=== PATIENT | male | born 1985 | race Caucasian/White ===

== ENCOUNTER 2016-12-01 13:38 | Emergency (ER) | payer OTHER, BC ==
[~2016-12-01] VITALS: Ht 180.3 cm; Wt 88.5 kg
[~2016-12-01 13:38] MED LIST: BUPR1SUB22 SL
[2016-12-01 13:40] VITALS: TEMP 37.1; Ht 180.3 cm; Wt 88.5 kg
[2016-12-01] MEDS ORDERED: DIPHTHERIA/TETANUS/PERTUSSIS 0.5 ML SYR/VIAL IM. ONE (14:00)
[2016-12-01] MEDS ORDERED: XYLOCAINE 1%/SOD BICARB 20 ML VIAL INFIL ONE (14:00)
--- NOTE | 2016-12-01 14:43 | DIAGNOSTIC IMAGING REPORT ---
RIGHT HAND MIN 3 VIEWS ROUTINE CLINICAL HISTORY: Right hand injury. Laceration. COMPARISON: None FINDINGS: Alignment of the right hand is in anatomic. There is no acute fracture or radiopaque foreign body. Carpal bones are intact. IMPRESSION: No acute fracture or radiopaque foreign body within the right hand. Electronically signed by: Homer Champagne M.D. 12/01/2016 2:42 PM Dictated Date/Time: 12/01/2016 2:41 PM
[2016-12-01] MEDS ORDERED: DOXY100C2 PO (15:07)
[2016-12-01 15:25] VITALS: BP 113/71; PULSE 59; O2SAT 96
--- NOTE | 2016-12-01 15:29 | EMERGENCY ROOM VISIT NOTE ---
ED Visit Note First contact with patient: 13:51 CHIEF COMPLAINT: Metal file in right hand HISTORY of present illness: 31-year-old male presents the ER with chief complaint that he got a metal file stuck in his right hand. The patient states that he had the file in a machine and he got caught in the back portion of it went into the palm of his right hand and there was tenting of the skin on the dorsal aspect of his hand. He states it did not go completely through his hand. He immediately pulled the file out of his hand. The patient denies any numbness and tingling in his fingers. He is able to move his fingers but it is painful. The patient is currently on Suboxone. The patient is unsure of his tetanus status. REVIEW OF SYSTEMS: 6 system review was performed and was negative unless stated otherwise in history of present illness. PMH: The patient is healthy; anterior cruciate ligament surgery, Lyme's disease SOCIAL HISTORY: Patient admits tobacco and occasional alcohol use. He lives with his fianc and children. PHYSICAL EXAM: Vital Signs: Were reviewed Reviewed Nurse's notes. GEN.: 31-year -old white male appears in no acute distress. MENTAL Status: Alert and oriented 3. RIGHT HAND: There is a puncture wound on the palmar aspect between the third and fourth metacarpals. There is no purulent drainage. There is no surrounding erythema. There is no foreign body noted. There is no open wounds noted on the dorsal aspect of the hand. The patient is able to move all fingers without difficulty. EMERGENCY DEPARTMENT COURSE: X-ray was performed as below without any evidence of foreign body or fracture. Wound was irrigated as below. The patient was given Adacel. The patient was offered ibuprofen but he stated that he had some in the car. The patient is on Suboxone therefore she will not get any narcotic pain medication. PROCEDURE: After Betadine cleansing and lidocaine anesthesia the wound was irrigated using an 18-gauge needle catheter. Antibiotic ointment and a bandage was applied. DIAGNOSTICS:RIGHT HAND MIN 3 VIEWS ROUTINE CLINICAL HISTORY: Right hand injury. Laceration. COMPARISON: None FINDINGS: Alignment of the right hand is in anatomic. There is no acute fracture or radiopaque foreign body. Carpal bones are intact. IMPRESSION: No acute fracture or radiopaque foreign body within the right hand. Electronically signed by: Homer Champagne M.D. 12/01/2016 2:42 PM Dictated Date/Time: 12/01/2016 2:41 PM DIAGNOSIS: Foreign body right hand DISCHARGE INSTRUCTIONS: Watch the area for signs of infection such as redness, swelling, or increasing tenderness. Keep the area covered with bacitracin and bandage for 3 days. Take doxycycline as prescribed. Ibuprofen 600 mg every 6 hours with food for pain. Follow-up with Dr. Gustafson Problem List Medical Problems: (1) Headache Status: Chronic Current/Historical Medications Scheduled Buprenorphine Hcl-Naloxone Hcl (Suboxone 2-0.5 Mg), 12 MG SL DAILY Doxycycline Hyclate (Vibramycin), 100 MG PO BID Allergies Coded Allergies: Penicillins (Verified Allergy, Intermediate, HIVES, 10/24/13) Amoxicillin (Verified Allergy, Unknown, ., 10/24/13) Uncoded Allergies: [id number] (Allergy, Intermediate, HIVES, 01/19/15) [id number] (Allergy, Unknown, ., 01/19/15) Vital Signs Date Time Temp Pulse Resp B/P (MAP) Pulse Ox O2 Delivery O2 Flow Rate FiO2 12/01/16 13:40 37.1 72 16 160/83 96 Room Air Medications Administered Medications (Trade) Dose Ordered Sig/Niko Route Start Time Stop Time Status Last Admin Dose Admin Diphtheria/ Pertussis/Tetanus Vacc (Adacel Inj) 0.5 ml ONCE ONCE IM. 12/01/16 14:00 12/01/16 14:01 DC 12/01/16 14:02 0.5 ML Departure Information Prescriptions Doxycycline Hyclate (VIBRAMYCIN) 100 Mg Cap 100 MG PO BID for 10 Days, CAP Prov: Daria Headley PA-C 12/01/16 Referrals Joe Javier M.D. (PCP) Patient Instructions [facility]
== END 2016-12-01 15:41 | disposition home or self-care (01) ==
LOC: C.EDB 13:39 → C.EDD 15:41
DX: S61.441A Puncture wound with foreign body of right hand, initial encounter (principal); W45.8XXA Other foreign body or object entering through skin, initial encounter; Z72.0 Tobacco use; Z86.19 Personal history of other infectious and parasitic diseases; Z98.890 Other specified postprocedural states; Z23 Encounter for immunization

== ENCOUNTER 2016-12-05 13:07 | Emergency (ER) | payer BC, OTHER ==
[~2016-12-05] VITALS: Ht 180.3 cm; Wt 76.7 kg
[~2016-12-05 13:07] MED LIST changes: +DOXY100C2 PO
[2016-12-05 13:10] VITALS: TEMP 36.6; Ht 180.3 cm; Wt 76.7 kg
[2016-12-05] MEDS ORDERED: PROCHLORPERAZINE 5 MG/ML 2 ML VIAL IV STA (13:25)
[2016-12-05] MEDS ORDERED: DiphenhydrAMINE HCL 50 MG/ML VIAL IV STA (13:25)
[2016-12-05] MEDS ORDERED: KETOROLAC TROMETHAMINE 30 MG/ML VIAL IV STA (13:25)
[2016-12-05] MEDS ORDERED: BUPR1SUB23 PO (13:27)
--- NOTE | 2016-12-05 13:31 | EMERGENCY ROOM VISIT NOTE ---
History Report prepared by Sarah: Yuko Dillard Under the Supervision of: Terrence GrijalvaO. First contact with patient: 13:14 Chief Complaint: HEADACHE Stated Complaint: EXTREME PAIN BEHIND RT EYE, VOMITING History of Present Illness The patient is a 31 year old male who presents to the Emergency Room with complaints of severe and persistent right sided head pain starting about 3 hours ago. The pain is located behind the right eye. He describes it as a pounding pain. He took Ibuprofen without relief. He reports some haziness of vision which started prior to the onset of his pain. He has a history of a similar headache occurring once a year and notes that this headache is consistent. He also has a history of migraine headache and reports some symptom similarity but his pain is more severe today. He also complains of nausea and vomiting. He denies numbness, weakness, or any other complaints. Headache came on gradually and progressively worsened. No fevers or neck pain. Source of History: patient Onset: about 3 hours ago Position: head (right sided) Symptom Intensity: severe Quality: other (pounding) Timing: other (persistent) Modifying Factors (Relieving): ibuprofen (without relief) Associated Symptoms: + nausea, + vomiting, No weakness, No numbness Review of Systems See HPI for pertinent positives & negatives. A total of 10 systems reviewed and were otherwise negative. Past Medical & Surgical Medical Problems: (1) Headache Family History Cancer Diabetes mellitus Heart disease Hypertension Social History Smoking Status: Never Smoker Alcohol Use: none Drug Use: none Marital Status: single Housing Status: lives with family Occupation Status: employed Current/Historical Medications Scheduled Buprenorphine Hcl-Naloxone Hcl (Suboxone 8-2 Mg), 8 MG PO DAILY Allergies Coded Allergies: Penicillins (Verified Allergy, Intermediate, HIVES, 10/24/13) Amoxicillin (Verified Allergy, Unknown, ., 10/24/13) Physical Exam Vital Signs Date Time Temp Pulse Resp B/P (MAP) Pulse Ox O2 Delivery O2 Flow Rate FiO2 12/05/16 15:09 57 18 118/66 96 Room Air 12/05/16 13:10 36.6 56 18 131/67 97 Room Air Physical Exam GENERAL: Sitting up in bed, alert, well appearing, well nourished, no distress, non-toxic HEAD: No tenderness over bilateral temporal arteries. EYE EXAM: normal conjunctiva, PERRL and EOM's intact OROPHARYNX: no exudate, no erythema, lips, buccal mucosa, and tongue normal and mucous membranes are moist NECK: supple, no nuchal rigidity, no adenopathy, non-tender LUNGS: Clear to auscultation. Normal chest wall mechanics HEART: no murmurs, S1 normal and S2 normal ABDOMEN: abdomen soft, non-tender, normo-active bowel sounds, no masses, no rebound or guarding. BACK: Back is symmetrical on inspection and there is no deformity, no midline tenderness, no CVA tenderness. SKIN: no rashes and no bruising UPPER EXTREMITIES: upper extremities are grossly normal. LOWER EXTREMITIES: No pitting edema. NEURO EXAM: Normal sensorium, cranial nerves II-XII intact, normal speech, no weakness of arms, no weakness of legs. No drift. Finger to nose intact. Gross sensation intact. Medical Decision & Procedures ER Provider Diagnostic Interpretation: CT:Per my review, radiologist interpretation. CT SCAN OF THE BRAIN WITHOUT IV CONTRAST CLINICAL HISTORY: Headache. COMPARISON STUDY: CT of the brain dated 06/02/2013. TECHNIQUE: Unenhanced axial CT scan of the brain is performed from the vertex to the skull base. Automated dose control exposure was utilized. A dose lowering technique was utilized adhering to the principles of ALARA. CT DOSE: 638.56 mGycm FINDINGS: Brain parenchyma: The brain parenchyma is normal in appearance. There is no hemorrhage, mass effect, or evidence of acute territorial ischemia by CT criteria. Tapia-white matter is preserved. No extra-axial fluid collection is seen. Ventricles, sulci, cisterns: Normal in configuration. Intracranial vasculature: The visualized intracranial vasculature at the skull base is normal in appearance. Calvarium: Unremarkable. Sinuses and mastoids: The visualized paranasal sinuses are clear. The mastoid air cells are well pneumatized. Orbits: The bony orbits are grossly intact. IMPRESSION: No acute intracranial abnormality. Electronically signed by: Donta Fink M.D. 12/05/2016 2:26 PM Dictated Date/Time: 12/05/2016 2:24 PM Laboratory Results 12/05/16 13:47 Red Blood Count 4.71, Mean Corpuscular Volume 82.8, Mean Corpuscular Hemoglobin 29.1, Mean Corpuscular Hemoglobin Concent 35.1, Mean Platelet Volume 9.5, Neutrophils (%) (Auto) 84.2, Lymphocytes (%) (Auto) 10.4, Monocytes (%) (Auto) 4.6, Eosinophils (%) (Auto) 0.5, Basophils (%) (Auto) 0.1, Neutrophils # (Auto) 8.51, Lymphocytes # (Auto) 1.05, Monocytes # (Auto) 0.47, Eosinophils # (Auto) 0.05, Basophils # (Auto) 0.01 12/05/16 13:47 Test 12/05/16 13:47 White Blood Count 10.11 K/uL (4.8-10.8) Red Blood Count 4.71 M/uL (4.7-6.1) Hemoglobin 13.7 g/dL (14.0-18.0) Hematocrit 39.0 % (42-52) Mean Corpuscular Volume 82.8 fL (80-100) Mean Corpuscular Hemoglobin 29.1 pg (25-34) Mean Corpuscular Hemoglobin Concent 35.1 g/dl (32-36) Platelet Count 202 K/uL (130-400) Mean Platelet Volume 9.5 fL (7.4-10.4) Neutrophils (%) (Auto) 84.2 % Lymphocytes (%) (Auto) 10.4 % Monocytes (%) (Auto) 4.6 % Eosinophils (%) (Auto) 0.5 % Basophils (%) (Auto) 0.1 % Neutrophils # (Auto) 8.51 K/uL (1.4-6.5) Lymphocytes # (Auto) 1.05 K/uL (1.2-3.4) Monocytes # (Auto) 0.47 K/uL (0.11-0.59) Eosinophils # (Auto) 0.05 K/uL (0-0.5) Basophils # (Auto) 0.01 K/uL (0-0.2) RDW Standard Deviation 37.4 fL (36.4-46.3) RDW Coefficient of Variation 12.4 % (11.5-14.5) Immature Granulocyte % (Auto) 0.2 % Immature Granulocyte # (Auto) 0.02 K/uL (0.00-0.02) Erythrocyte Sedimentation Rate 2 mm/hr (0-14) Anion Gap 4.0 mmol/L (3-11) Est Creatinine Clear Calc Drug Dose 152.7 ml/min Estimated GFR () 142.9 Estimated GFR (Non- 123.3 BUN/Creatinine Ratio 21.7 (10-20) Calcium Level 8.9 mg/dl (8.5-10.1) Laboratory results per my review. Medications Administered Medications (Trade) Dose Ordered Sig/Niko Route Start Time Stop Time Status Last Admin Dose Admin Ketorolac Tromethamine (Toradol Inj) 30 mg NOW STAT IV 12/05/16 13:25 12/05/16 13:27 DC 12/05/16 14:33 30 MG Diphenhydramine HCl (Benadryl Inj) 50 mg NOW STAT IV 12/05/16 13:25 12/05/16 13:27 DC 12/05/16 14:32 50 MG Prochlorperazine Edisylate 10 mg/ Syringe 10 ml @ 5 mls/min NOW STAT IV 12/05/16 14:13 12/05/16 14:14 DC 12/05/16 14:33 5 MLS/MIN ED Course ED COURSE: Vital signs were reviewed and showed hypertensive, bradycardic. The patients medical record was reviewed The above diagnostic studies were performed and reviewed. ED treatments and interventions as stated above. 1314: The patient was evaluated in room C07. A complete history and physical examination was performed. 1325: Benadryl Inj 50 mg IV, Toradol Inj 30 mg IV 1413: Prochlorperazine Edisylate 10 mg/Syringe 10 ml @ 5 mls/min IV 1446: The patient decline a lumbar puncture and states that he feels better. 1530: Upon reevaluation, the patient is resting comfortably.I discussed my findings with the patient and he understands and agrees with the treatment plan. Based on the patients age, coexisting illnesses, exam and lab findings the decision to treat as an outpatient was made. The patient remained stable while under my care. The patient appeared well at the time of discharge. Medical Decision Differential Diagnosis includes but is not limited to headache, tension headache , cluster headache, migraine, subarachnoid hemorrhage, meningitis, mass, central venous thrombus, concussion, trauma and epidural/subdural hemorrhage. Patient is a 31-year-old male who presents the ER for severe headache located behind his right eye. No trauma. No signs of meningitis or encephalitis on exam. Vitals are unremarkable. Afebrile. Headache came on gradually and gradually worsened. He gets a headache like this once a year and notes that this is consistent with previous headaches. Neuro exam is completely intact. CT head was negative with a headache that started within 6 hours. Recommended LP to rule out subarachnoid hemorrhage but patient declined. Patient is given IV fluids, Compazine, Benadryl and Toradol. His pain improved significantly. No tenderness over the temporal artery. Intraocular pressures were 15 on the right and 17 on the left. Sedimentation rate was negative. Patient was updated at bedside. Informed refusal of care was performed at the beginning of the exam and again at the end as he declined LP on 2 separate occasions as he has had one before in the past. Patient was updated bedside. He was discharged following informed refusal of care to follow-up with PCP. He is instructed not to drive for the remainder of the day. Discussed with Pt concerning signs and symptoms to watch out for. Pt was instructed to follow up with their PCP and discussed with the patient their option to return to the ED at anytime for persistent or worsening symptoms. The appropriate anticipatory guidance and out- patient management, including indications for return to the emergency department , were explained at length to the patient and understood. Medication Reconcilliation Current Medication List: was personally reviewed by me Blood Pressure Screening Patient's blood pressure: Elevated blood pressure Blood pressure disposition: Elevated BP felt to be situational Impression Primary Impression: Headache Scribe Attestation The scribe's documentation has been prepared under my direction and personally reviewed by me in its entirety. I confirm that the note above accurately reflects all work, treatment, procedures, and medical decision making performed by me. Departure Information Dispostion Home / Self-Care Referrals No Doctor, Assigned (PCP) Forms HOME CARE DOCUMENTATION FORM, IMPORTANT VISIT INFORMATION Patient Instructions Headache Pain, My [facility] Additional Instructions Please follow up with your primary care doctor or if you are a student, [facility] [facility] [employer] with in the next 24 hours. Any worsening of your symptoms, please return to the ED immediately. This includes any fevers greater than 100.4, worsening pain, chest pain, shortness breath, persistent nausea, vomiting, unable to eat or drink, or any other concerning signs or symptoms from your standpoint. Problem Qualifiers Primary Impression: Headache Headache type: unspecified Headache chronicity pattern: acute headache Intractability: not intractable Qualified Codes: R51 - Headache
[2016-12-05 14:00] LABS: BASO % 0.1 %; BASO ABS # 0.01 K/uL (0-0.2); COMPLETE YES; EOS % 0.5 %; IG% 0.2 %; LYMPH % 10.4 %; LYMPH ABS # 1.05 K/uL (1.2-3.4); MEAN CELL VOLUME 82.8 fL (80-100); MEAN CORPUSCULAR HEMOGLOBIN 29.1 pg (25-34); MEAN CORPUSCULAR HGB CONC 35.1 g/dl (32-36); MEAN PLATELET VOLUME 9.5 fL (7.4-10.4); MONO % 4.6 %; NEUT % 84.2 %; PLATELET COUNT 202 K/uL (130-400); RED BLOOD COUNT 4.71 M/uL (4.7-6.1); WHITE BLOOD COUNT 10.11 K/uL (4.8-10.8)
[2016-12-05] MEDS ORDERED: PROCHLORPERAZINE INJ 10 MG in SYRINGE 8 ML IV STA (14:13)
[2016-12-05 14:22] LABS: BUN/CREATININE RATIO 21.7 (10-20); CALCIUM 8.9 mg/dl (8.5-10.1); CREATININE 0.76 mg/dl (0.60-1.40); POTASSIUM 3.9 mmol/L (3.5-5.1)
--- NOTE | 2016-12-05 14:27 | DIAGNOSTIC IMAGING REPORT ---
CT SCAN OF THE BRAIN WITHOUT IV CONTRAST CLINICAL HISTORY: Headache. COMPARISON STUDY: CT of the brain dated 06/02/2013. TECHNIQUE: Unenhanced axial CT scan of the brain is performed from the vertex to the skull base. Automated dose control exposure was utilized. A dose lowering technique was utilized adhering to the principles of ALARA. CT DOSE: 638.56 mGycm FINDINGS: Brain parenchyma: The brain parenchyma is normal in appearance. There is no hemorrhage, mass effect, or evidence of acute territorial ischemia by CT criteria. Tapia-white matter is preserved. No extra-axial fluid collection is seen. Ventricles, sulci, cisterns: Normal in configuration. Intracranial vasculature: The visualized intracranial vasculature at the skull base is normal in appearance. Calvarium: Unremarkable. Sinuses and mastoids: The visualized paranasal sinuses are clear. The mastoid air cells are well pneumatized. Orbits: The bony orbits are grossly intact. IMPRESSION: No acute intracranial abnormality. Electronically signed by: Donta Fink M.D. 12/05/2016 2:26 PM Dictated Date/Time: 12/05/2016 2:24 PM
[2016-12-05 15:36] VITALS: BP 118/66; PULSE 57; O2SAT 96
== END 2016-12-05 15:37 | disposition home or self-care (01) ==
LOC: C.EDB 13:09 → C.EDC 15:37
DX: R51 Headache (principal); Z83.3 Family history of diabetes mellitus; Z82.49 Family history of ischemic heart disease and other diseases of the circulatory system

== ENCOUNTER → 2017-04-20 | Outpatient (CLI) | payer BC ==
[~2017-04-20] MED LIST changes: -BUPR1SUB22 SL; +BUPR1SUB23 PO; -DOXY100C2 PO
--- NOTE | 2017-04-20 09:02 | DIAGNOSTIC IMAGING REPORT ---
LEFT KNEE 4 VIEWS CLINICAL HISTORY: LEFT KNEE PAIN COMPARISON: None. DISCUSSION: There are postsurgical changes of anterior cruciate ligament repair. No acute fractures are visualized. There are no erosive or destructive changes. IMPRESSION: 1. Postsurgical changes. No acute fractures. Electronically signed by: Anupam Barrow M.D. 04/20/2017 9:00 AM Dictated Date/Time: 04/20/2017 8:59 AM
== END | disposition home or self-care (01) ==
LOC: C.RDSM 11:24
PROVIDERS: ATTEND Physician Assistant
DX: M25.562 Pain in left knee (principal)